=== PATIENT | male | born 1980 | race Caucasian/White ===

== ENCOUNTER 2019-03-11 17:46 | Emergency (ER) | payer BC ==
[~2019-03-11] VITALS: Ht 172.7 cm; Wt 90.9 kg
[2019-03-11 18:01] VITALS: Ht 172.7 cm; Wt 90.9 kg
[2019-03-11 18:36] LABS: BASOPHILS 0.7 % (0-2); EOSINOPHILS 2.3 % (0-7); HEMOGLOBIN 15.7 g/dL (13.5-17.5); LYMPHOCYTES 40.6 % (15-50); MCH 31.7 pg (26.0-34.0); MCHC 37.4 g/dL (31.0-37.0); MCV 84.7 fL (80.0-100.0); MEAN PLATELET VOLUME 11.1 fL (7.4-10.4); MONOCYTES 9.5 % (2-11); NEUTROPHILS 46.9 % (40-80); PLATELET COUNT 163 10x3/uL (130-400); RBC 4.96 10x6/uL (4.20-6.10); RDW 11.8 % (11.5-14.5); WBC 5.7 10x3/uL (4.8-10.8)
[2019-03-11 18:48] LABS: UDS - AMPHET NEGATIVE QUAL (NEGATIVE); UDS - BARB NEGATIVE QUAL (NEGATIVE); UDS - BENZO NEGATIVE QUAL (NEGATIVE); UDS - COCAINE NEGATIVE QUAL (NEGATIVE); UDS - OPIATE NEGATIVE QUAL (NEGATIVE); UDS - PCP NEGATIVE QUAL (NEGATIVE); UDS - THC NEGATIVE QUAL (NEGATIVE)
[2019-03-11 18:51] LABS: ALBUMIN 3.8 g/dL (3.4-5.0); ALKALINE PHOSPHATASE 82 U/L (46-116); ALT (SGPT) 35 U/L (10-68); BILIRUBIN - TOTAL 0.49 mg/dL (0.2-1.3); CALC OSMOLALITY 278 mosm/kg (275-300); CALCIUM 8.8 mg/dL (8.5-10.1); CARBON DIOXIDE 29.2 mmol/L (21.0-32.0); CHLORIDE - SERUM 104 mmol/L (98-107); CREATININE - SERUM 1.2 mg/dL (0.6-1.3); GLUCOSE 92 mg/dL (74-106); PROTEIN - SERUM 6.9 g/dL (6.4-8.2); SODIUM 140 mmol/L (136-145); UREA NITROGEN 13 mg/dL (7-18); eGFR NON AFRICAN AMERICAN 72 mL/min (90-120)
[2019-03-11 18:56] LABS: APPEARANCE CLEAR (CLEAR); COLOR YELLOW (YELLOW)
[2019-03-11 18:57] LABS: BILIRUBIN NEGATIVE (NEGATIVE); GLUCOSE NEGATIVE (NEGATIVE); KETONE NEGATIVE (NEGATIVE); NITRITE NEGATIVE (NEGATIVE); PROTEIN NEGATIVE (NEGATIVE); UROBILINOGEN NORMAL (NORMAL)
[2019-03-11 19:09] LABS: CKMB 0.8 U/L (0.0-3.6); CREATINE KINASE 140 UL (21-232); TROPONIN-I < 0.017 ng/mL (0.000-0.060)
[2019-03-11 22:57] VITALS: BP 117/74
== END 2019-03-11 22:58 | disposition other institution (70) ==
LOC: D.ER 17:46
PROVIDERS: Family Medicine
DX: R29.818 Other symptoms and signs involving the nervous system (principal); R42 Dizziness and giddiness